=== PATIENT | female | born 1940 | race Hispanic/Latino ===

== ENCOUNTER → 2022-10-13 | Outpatient (CLI) | payer MEDICARE ==
[~2022-10-13] MED LIST: AMOX1TAB16 PO; ASCO500T10 PO; ATOR40TA71 PO; CHOL100020 PO; CYCL30DR OP; DENO60DI SQ; DULA0.75 SQ; ESOM40CA54 PO; FINE20TA PO; LEVO112T7 PO; METO-391 PO; METO5 PO; MV M PO; VITA0.4T20 PO; ZINC50TA64 PO; [UNRECOGNIZED DRUG - OTHER] PO
== END | disposition home or self-care (01) ==
LOC: SHCH 08:01
PROVIDERS: ATTEND Internal Medicine Cardiovascular Disease
DX: I34.0 Nonrheumatic mitral (valve) insufficiency (principal); I34.81 Nonrheumatic mitral (valve) annulus calcification; I51.7 Cardiomegaly
CPT/HCPCS: 93306

== ENCOUNTER → 2022-10-15 | Outpatient (CLI) | payer MEDICARE ==
[~2022-10-15] MED LIST changes: +REGADENOSON 0.4 MG/5 ML PF SYG IVP ONE
== END | disposition home or self-care (01) ==
LOC: SHCH 08:11
PROVIDERS: ATTEND Internal Medicine Cardiovascular Disease
DX: R06.02 Shortness of breath (principal); R00.0 Tachycardia, unspecified; Z79.899 Other long term (current) drug therapy
CPT/HCPCS: 78452; 96374; 93017; J2785; A9500 ×2

== ENCOUNTER 2023-01-20 08:33 | Day surgery (SDC) | payer MEDICARE ==
[2023-01-19 13:57] LABS: BASOPHILS % (AUTO) 1.2 % (0.0-5.0); EOSINOPHILS # (AUTO) 0.07 K/uL (0.00-0.70); EOSINOPHILS % (AUTO) 0.9 % (0.0-8.0); HEMATOCRIT 36.9 % (36-48); IMMATURE GRANULOCYTE ABSOLUTE 0.03 K/uL (0-1); LYMPHOCYTES # (AUTO) 1.7 K/uL (1.0-4.8); LYMPHOCYTES % (AUTO) 20.2 % (21.0-51.0); MEAN CORPUSCULAR HEMOGLOBIN 30.2 pg (27.0-33.0); MEAN CORPUSCULAR HGB CONC 32.8 g/dL (32.0-36.0); MONOCYTES # (AUTO) 0.8 K/uL (0.1-1.0); MONOCYTES % (AUTO) 10.2 % (3.0-13.0); NEUTROPHILS # (AUTO) 5.5 K/uL (1.8-7.7); NEUTROPHILS % (AUTO) 67.1 % (40.0-77.0); PLATELET COUNT (AUTO) 96 K/uL (130-400); RED BLOOD CELL COUNT(AUTO) 4.01 MIL/uL (4.00-5.50); RED CELL DISTRIBUTION WIDTH 19.6 % (11.0-15.5); WHITE BLOOD COUNT (AUTO) 8.2 K/uL (4.8-10.8)
[2023-01-19 14:11] LABS: INR 0.94 (0.85-1.15); PROTHROMBIN TIME 10.9 SEC (9.6-11.6)
[2023-01-19 14:12] LABS: PARTIAL THROMBOPLASTIN TIME 28.7 SEC (26.3-35.5)
[2023-01-19 14:54] VITALS: BP 124/65; PULSE 85; RESP 17
[~2023-01-20] VITALS: Ht 157.5 cm; Wt 68.4 kg
[2023-01-20] VITALS (18 sets, daily range): BP systolic 112–137; BP diastolic 44–74; PULSE 55–68; RESP 16–22
[~2023-01-20 08:33] MED LIST changes: -AMOX1TAB16 PO; +ASCO100033 PO; -ASCO500T10 PO; +CIPR500T10 PO; +CYCL1DRO14 OP; -DENO60DI SQ; +FENTANYL CITRATE PF 50 MCG/1 ML 5ML AMP IV ONE; -FINE20TA PO; +LACT1CAP81 PO; -METO5 PO; +OMEG100032 PO; -REGADENOSON 0.4 MG/5 ML PF SYG IVP ONE; -[UNRECOGNIZED DRUG - OTHER] PO
[2023-01-20] MEDS ORDERED: MIDAZOLAM HCL 1 MG/ML 5ML VIAL ONE (08:56)
[2023-01-20] MEDS ORDERED: FENTANYL CITRATE PF 50 MCG/1 ML 5ML AMP IV ONE ×2 (08:56→10:50)
[2023-01-20] MEDS ORDERED: LIDOCAINE PF 100MG/5ML (2%) SYRINGE 5ML ONE (09:22)
[2023-01-20] MEDS ORDERED: ZOSYN 3.375GM+NS 50ML 50 ML IVPB ONE (09:22)
[2023-01-20] MEDS ORDERED: 0.9%NACL 1000ML 1,000 ML IV ONE (09:22)
[2023-01-20] MEDS ORDERED: DEXAMETHASONE SOD PHOSPHATE 10MG/ML 1ML VIAL ONE (09:22)
[2023-01-20] MEDS ORDERED: SUCCINYLCHOLINE 200MG/10ML SYR ONE (09:22)
[2023-01-20] MEDS ORDERED: GLYCOPYRROLATE 1 MG/5 ML SYRINGE ONE (09:23)
[2023-01-20] MEDS ORDERED: ROCURONIUM 10MG/1ML SYR 10 MG/ML ML ONE (09:23)
[2023-01-20] MEDS ORDERED: PROPOFOL 10 MG/ML 20ML VIAL IV ONE (09:23)
[2023-01-20] MEDS ORDERED: ONDANSETRON 4MG INJ ONE (09:23)
[2023-01-20] MEDS ORDERED: NEOSTIGMINE 5MG/5ML SYR IV ONE (09:23)
[2023-01-20] MEDS ORDERED: INDOCYANINE GREEN 25 MG VIAL IJ ONE ×2 (09:49→10:24)
[2023-01-20] MEDS ORDERED: ZOSYN 3.375GM +NS 50ML IVPB ONE (10:16)
[2023-01-20] MEDS ORDERED: EPHEDRINE SULFATE 50 MG/ML AMPULE ONE (10:21)
[2023-01-20] MEDS ORDERED: ROPIVACAINE 0.5% 5MG/ML 30ML IJ ONE (11:07)
[2023-01-20] MEDS ORDERED: LIDOCAINE 2%-EPI 1:200,000 20 ML VIAL IJ ONE (11:07)
[2023-01-20] MEDS ORDERED: SUGAMMADEX SODIUM 200 MG/2 ML VIAL IV ONE (11:14)
[2023-01-20] MEDS ORDERED: MEPERIDINE-PF 25 MG/ML SYG ONE (11:20)
== END 2023-01-20 13:25 | disposition short-term general hospital (02) ==
LOC: DAH 08:33
PROVIDERS: ATTEND Surgery
DX: K80.10 Calculus of gallbladder with chronic cholecystitis without obstruction (principal); K82.8 Other specified diseases of gallbladder; I10 Essential (primary) hypertension; E11.9 Type 2 diabetes mellitus without complications; Z79.899 Other long term (current) drug therapy; Z79.01 Long term (current) use of anticoagulants; Z82.49 Family history of ischemic heart disease and other diseases of the circulatory system
CPT/HCPCS: 80048; 85025; 85610; 85730; 36415; 71045; 93005; 47562; 82948 ×2; 88304; 64488; A6260; A4663; J7030 ×2; A4452; J3010 ×3; J0330; J3490 ×3; J1100; J2710; J2001; J2250; J2704; J2405; J2543 ×2; J2175; J2795; C1769; A4930 ×2; A4215; A4223; A4222; A4221; A4600